=== PATIENT | female | born 1985 | race African-American/Black ===

== ENCOUNTER 2019-04-11 13:53 | Inpatient (IN) | payer SELFPAY ==
[~2019-04-11] VITALS: Ht 160 cm; Wt 104.3 kg
[2019-04-19] MEDS ORDERED: ACETAMINOPHEN 500MG TABLET PO NR (13:30)
== END 2019-04-19 14:45 | disposition home or self-care (01) | DRG 566 ==
LOC: OBSVTOIN 04-19 11:54 → 8 EST LDRP 04-19 11:54
PROVIDERS: ADMIT Obstetrics & Gynecology; ATTEND Obstetrics & Gynecology
DX: O26.893 Other specified pregnancy related conditions, third trimester (principal); R10.9 Unspecified abdominal pain; Z3A.37 37 weeks gestation of pregnancy; Z88.8 Allergy status to other drugs, medicaments and biological substances; Z91.018 Allergy to other foods; Z91.013 Allergy to seafood
CPT/HCPCS: 99281

== ENCOUNTER 2019-05-01 06:39 | Inpatient (IN) | payer SELFPAY ==
[~2019-05-01] VITALS: Ht 160 cm; Wt 99.8 kg
[2019-05-01] MEDS ORDERED: LACTATED RINGERS 1,000 ML IV SCH (06:57)
[2019-05-01] MEDS ORDERED: DEXT 5%/LR + PITOCIN 20UNITS/L 1,000 ML IV SCH ×2 (06:57→11:18)
[2019-05-01] MEDS ORDERED: NALOXONE HCL 0.4 MG/ML 1ML VIAL IM PRN (07:00)
[2019-05-01] MEDS ORDERED: METHYLERGONOVINE MALEATE 0.2 MG/ML IM PRN (07:00)
[2019-05-01] MEDS ORDERED: CARBOPROST TROMETHAMINE 250 MCG/ML AMPUL IM PRN (07:00)
[2019-05-01] MEDS ORDERED: CITRIC ACID/SODIUM CITRATE SOLN 30ML UDC PO ONE (07:30)
[2019-05-01] MEDS ORDERED: MORPHINE SULFATE/PF 1MG/ML 10ML AMP ONE (07:35)
[2019-05-01] MEDS ORDERED: FENTANYL CITRATE/PF 50MCG/ML 2ML VIAL ONE (07:35)
[2019-05-01] MEDS ORDERED: OXYTOCIN 10 UNITS/ML 1ML ONE ×2 (07:36→10:44)
[2019-05-01] MEDS ORDERED: EPHEDRINE SULFATE 50MG/ML VIAL ONE (07:36)
[2019-05-01] MEDS ORDERED: METOCLOPRAMIDE HCL 10MG/2ML VIAL ONE (07:36)
[2019-05-01] MEDS ORDERED: PHENYLEPHRINE HCL 10 MG/ML 1ML (IV VIAL) IV ONE (07:36)
[2019-05-01] MEDS ORDERED: ONDANSETRON HCL 4MG/2ML INJ ONE (07:36)
[2019-05-01] MEDS ORDERED: CEFAZOLIN SODIUM 1000MG/VIAL ONE (07:36)
[2019-05-01] MEDS ORDERED: GLYCOPYRROLATE 0.2 MG/ML 2ML VIAL ONE (07:36)
[2019-05-01 08:09] LABS: BASOPHILS % 0.3 % (0.0-2.0); EOSINOPHILS % 2.2 % (0.0-5.0); HEMATOCRIT. 34.7 % (36.0-48.0); HEMOGLOBIN. 11.3 g/dL (12.0-16.0); LYMPHOCYTES % 23.8 % (20.0-50.0); MEAN CORPUSCULAR HEMOGLOBIN 24.1 pg (28.0-32.0); MEAN CORPUSCULAR VOLUME 74.2 fL (81.0-99.0); MEAN PLATELET VOLUME 10.2 fl (7.4-10.4); MONOCYTES % 10.2 % (2.0-8.0); NEUTROPHILS % 63.5 % (40.0-76.0); PLATELET 168 x1000/uL (130-400); RED BLOOD CELL COUNT 4.68 mill/uL (4.2-5.4); RED CELL DISTRIBUTION WIDTH 16.6 % (11.6-14.6)
[2019-05-01 08:19] LABS: INR 0.9; PARTIAL THROMBOPLASTIN TIME 27.2 sec (23.4-31.0); PROTHROMBIN TIME 9.5 sec (9.6-11.0)
[2019-05-01 08:23] LABS: CLARITY URINE CLOUDY (CLEAR); COLOR URINE YELLOW (YELLOW); KETONES URINE NEGATIVE (NEGATIVE); LEUKOCYTE ESTERASE URINE TRACE (NEGATIVE); NITRITE URINE NEGATIVE (NEGATIVE); OCCULT BLOOD URINE NEGATIVE (NEGATIVE); PH URINE 5.5 (4.5-8.0); PROTEIN URINE NEGATIVE (NEGATIVE); SPECIFIC GRAVITY URINE 1.017 (1.005-1.030); UROBILINOGEN URINE 0.2 E.U./dL (0.2-1.0)
[2019-05-01 09:25] LABS: *AMPHETAMINES SCREEN URINE NEGATIVE (NEGATIVE)
[2019-05-01 09:26] LABS: *BARBITURATES SCREEN URINE NEGATIVE (NEGATIVE); *BENZODIAZEPINES SCREEN URINE NEGATIVE (NEGATIVE); *COCAINE SCREEN URINE NEGATIVE (NEGATIVE); METHADONE URINE SCREEN NEGATIVE (NEGATIVE); OPIATES URINE SCREEN NEGATIVE (NEGATIVE); PHENCYCLIDINE URINE SCREEN NEGATIVE (NEGATIVE)
[2019-05-01 09:27] LABS: CANNABINOID URINE SCREEN NEGATIVE (NEGATIVE)
[2019-05-01] MEDS ORDERED: DIPHENHYDRAMINE 50MG/ML VIAL ONE (10:33)
[2019-05-01] MEDS ORDERED: KETOROLAC 60MG/2ML VIAL IM ONE (10:33)
[2019-05-01] MEDS ORDERED: IBUPROFEN 400MG TABLET PO PRN (11:30)
[2019-05-01] MEDS ORDERED: HYDROMORPHONE HCL/PF 2MG/ML CPJ IM PRN (11:30)
[2019-05-01] MEDS ORDERED: RHO(D) IMMUNE GLOBULIN 300 MCG/SYR IM PRN (11:30)
[2019-05-01] MEDS ORDERED: BISACODYL 10MG SUPP PR PRN (11:30)
[2019-05-01] MEDS ORDERED: DIPHENHYDRAMINE 50MG/ML VIAL IV PRN (12:00)
[2019-05-01] MEDS ORDERED: NALOXONE HCL 0.4 MG/ML 1ML VIAL IV PRN (12:00)
[2019-05-01] MEDS ORDERED: BUTORPHANOL TARTRATE 2 MG/ML VIAL IV PRN (12:00)
[2019-05-01 13:02] LABS: HEPATITIS B SURFACE ANTIGEN NEGATIVE
[2019-05-01] MEDS ORDERED: HYDROCODONE/ACETAMINOPHEN 5/325MG TABLET PO PRN (15:45)
[2019-05-01] MEDS ORDERED: ONDANSETRON HCL 4MG/2ML INJ IV PRN (19:30)
[2019-05-01 19:38] VITALS: BP 134/83
[2019-05-01] MEDS: KETOROLAC 30MG/ML VIAL IV SCH (19:43)
[2019-05-01 23:30] VITALS: BP 135/85
[2019-05-02] MEDS: KETOROLAC 30MG/ML VIAL IV SCH ×2 (00:36→05:48)
[2019-05-02 04:14] VITALS: BP 136/85
[2019-05-02 06:33] LABS: BASOPHILS % 0.1 % (0.0-2.0); EOSINOPHILS % 2.1 % (0.0-5.0); HEMATOCRIT. 29.9 % (36.0-48.0); HEMOGLOBIN. 9.9 g/dL (12.0-16.0); LYMPHOCYTES % 16.9 % (20.0-50.0); MEAN CORPUSCULAR HEMOGLOBIN 24.3 pg (28.0-32.0); MEAN CORPUSCULAR VOLUME 73.5 fL (81.0-99.0); MEAN PLATELET VOLUME 10.8 fl (7.4-10.4); MONOCYTES % 9.6 % (2.0-8.0); NEUTROPHILS % 71.3 % (40.0-76.0); PLATELET 156 x1000/uL (130-400); RED BLOOD CELL COUNT 4.07 mill/uL (4.2-5.4); RED CELL DISTRIBUTION WIDTH 16.5 % (11.6-14.6)
[2019-05-02 08:00] VITALS: BP 122/81
[2019-05-02] MEDS: IBUPROFEN 800MG TABLET PO PRN ×3 (09:56→22:30)
[2019-05-02 17:04] VITALS: BP 123/84
[2019-05-02 19:30] VITALS: BP 129/93
[2019-05-03 04:00] VITALS: BP 118/65
[2019-05-03 08:00] VITALS: BP 106/41
[2019-05-03] MEDS: IBUPROFEN 800MG TABLET PO PRN ×3 (08:39→20:23)
[2019-05-03 15:30] VITALS: BP 117/77
[2019-05-03 19:30] VITALS: BP 129/76
[2019-05-04] MEDS ORDERED: IBUP-2030 PO (02:37)
[2019-05-04 04:54] VITALS: BP 113/79
[2019-05-04] MEDS: IBUPROFEN 800MG TABLET PO PRN ×2 (04:54→10:41)
[2019-05-04 08:00] VITALS: BP 109/76
== END 2019-05-04 12:10 | disposition home or self-care (01) | DRG 540 ==
LOC: OBSVTOIN 06:39 → 8 EST LDRP 06:39 → 8EST 13:34
PROVIDERS: ADMIT Obstetrics & Gynecology; ATTEND Obstetrics & Gynecology
PROC: 10D00Z1 Extraction of Products of Conception, Low, Open Approach (ICD-10-PCS; principal; 2019-05-01)
DX: O34.211 Maternal care for low transverse scar from previous cesarean delivery (principal); E66.9 Obesity, unspecified; D25.9 Leiomyoma of uterus, unspecified; O16.4 Unspecified maternal hypertension, complicating childbirth; O34.13 Maternal care for benign tumor of corpus uteri, third trimester; O99.03 Anemia complicating the puerperium; O99.214 Obesity complicating childbirth; Z37.0 Single live birth; Z3A.39 39 weeks gestation of pregnancy; Z88.1 Allergy status to other antibiotic agents; Z91.018 Allergy to other foods
CPT/HCPCS: 36415; 80305; 81003; 85025; 86592; 86703; 86762; 86850; 86900; 86920; 87340; 88307; J0690; J1170; J1200; J1885; J2274; J2370; J2405; J2765; J3010; J3490; J7120; A4315